=== PATIENT | female | born 2000 ===

== ENCOUNTER 2022-12-15 18:06 | Outpatient (CLI) | payer SELFPAY ==
[~2022-12-15] VITALS: Ht 157.5 cm; Wt 69.1 kg
[2022-12-15 18:40] VITALS: BP 130/78
[2022-12-15] MEDS ORDERED: PRENTAB9 PO (18:53)
[2022-12-15 20:51] VITALS: BP 126/83
== END 2022-12-15 22:23 | disposition home or self-care (01) ==
LOC: M LDO 18:06
PROVIDERS: ATTEND Obstetrics & Gynecology
DX: O26.893 Other specified pregnancy related conditions, third trimester (principal); R25.2 Cramp and spasm; M54.50 Low back pain, unspecified; Z3A.35 35 weeks gestation of pregnancy
CPT/HCPCS: 59025; 76811; 81001; G0463

== ENCOUNTER 2024-07-02 02:47 | Inpatient (IN) | payer SELFPAY ==
[~2024-07-02] VITALS: Ht 157.5 cm; Wt 77.4 kg
[~2024-07-02 02:47] MED LIST: PRENTAB9 PO
[2024-07-02] MEDS ORDERED: TRANEXAMIC ACID INJection 1,000 MG in NS 100 ML IV PRN (02:55)
[2024-07-02] MEDS ORDERED: CARBOPROST TROMETHAMINE 250 MCG/ML AMP IM PRN (02:55)
[2024-07-02] MEDS ORDERED: OXYTOCIN INJ 10UNITS/ML 1ML VIAL IM PRN (02:55)
[2024-07-02] MEDS ORDERED: METHYLERGONOVINE MALEATE 0.2MG/ML 1ML VIAL IM PRN (02:55)
[2024-07-02 03:04] VITALS: BP 132/83
[2024-07-02] MEDS: PENICILLIN G POTASSIUM 5 MU IV 5 MU in DEXTROSE 5% (D5W) MINI-BAG PLU 100 ML IV STA (03:51)
[2024-07-02 03:58] LABS: HEMATOCRIT 34.6 % (36.0-47.0); HEMOGLOBIN 11.6 g/dl (12.0-15.5); MEAN CORPUSCULAR HEMOGLOBIN 27.1 pg (27.0-33.0); MEAN CORPUSCULAR HGB CONC 33.5 g/dl (32.0-36.5); MEAN CORPUSCULAR VOLUME 80.8 fl (80.0-96.0); PLATELET COUNT, AUTOMATED 185 10^3/uL (150-450); RED BLOOD COUNT 4.28 10^6/uL (4.00-5.40); WHITE BLOOD COUNT 10.5 10^3/uL (4.0-10.0)
[2024-07-02 04:56] LABS: HEPATITIS C VIRUS ABY INDEX 0.09 INDEX (<0.8)
[2024-07-02] MEDS: PEN G POT 3,000,000 UNIT/50 ML 3,000,000 UNIT in IV 1 EA IV SCH (07:54)
[2024-07-02] MEDS: OXYTOCIN DRIP 30 UNITS in IV 1 EA IV PRN (08:45)
[2024-07-02] MEDS: LIDOCAINE 1% MDV 20ML VIAL INFIL PRN (08:48)
[2024-07-02] MEDS ORDERED: ACETAMINOPHEN 500 MG TAB PO PRN (09:15)
[2024-07-02] MEDS ORDERED: DOCUSATE SODIUM 100MG CAPSULE PO PRN (09:15)
[2024-07-02] MEDS ORDERED: ONDANSETRON 4MG 2ML VIAL IV PRN (09:15)
[2024-07-02] MEDS ORDERED: ACETAMINOPHEN 325 MG TAB PO PRN (09:15)
[2024-07-02] MEDS ORDERED: ANUSOL HC CREAM 30GM TOP PRN (09:15)
[2024-07-02] MEDS ORDERED: DIBUCAINE 1% OINTMENT 30GM TOP PRN (09:15)
[2024-07-02] MEDS ORDERED: MOM 30ML SUSPENSION UDC PO PRN (09:15)
[2024-07-02] MEDS ORDERED: IBUPROFEN 600MG TAB PO PRN (09:15)
[2024-07-02 09:33] LABS: URIC ACID 4.6 MG/DL (3.1-7.8)
[2024-07-02 09:36] LABS: LDH LACTATE DEHYDROGENASE 260 U/L (120-246)
[2024-07-02 09:37] LABS: ALT/SGPT 11 U/L (7.0-40); AST/SGOT 21 U/L (<34); BILIRUBIN,TOTAL 0.3 MG/DL (0.3-1.2); CREATININE FOR GFR 0.53 MG/DL (0.55-1.30); GLOMERULAR FILTRATION RATE > 60.0 (>60)
[2024-07-02 09:46] LABS: HIV 1&2 SCREEN NEGATIVE (NEGATIVE)
[2024-07-02] MEDS: KETOROLAC 30 MG/ML 1ML VIAL IV ONE (09:59)
[2024-07-02 13:20] VITALS: BP 143/94; O2SAT 99
[2024-07-02 18:00] VITALS: BP 119/62; O2SAT 98
[2024-07-02] MEDS: IBUPROFEN 800 MG TAB PO PRN (20:57)
[2024-07-03 05:55] VITALS: BP 119/66; O2SAT 98
[2024-07-03] MEDS: PRENATAL VITAMINS CHEWABLE TABLET PO SCH (09:42)
[2024-07-03] MEDS: RHOGAM 300MCG (1500IU) INJ IM SCH (09:48)
[2024-07-04] MEDS ORDERED: MEASLES,MUMPS,RUBELLA VACCINE INJ (MMR-II) SC.IMMUN ONE (09:00)
== END 2024-07-03 14:24 | disposition home or self-care (01) | DRG 560 ==
LOC: M LDO 02:47 → M LDI 02:57 → M OBS 12:39
PROVIDERS: ADMIT Advanced Practice Midwife; ATTEND Advanced Practice Midwife
PROC: 10E0XZZ Delivery of Products of Conception, External Approach (ICD-10-PCS; principal; 2024-07-02)
PROC: 10907ZC Drainage of Amniotic Fluid, Therapeutic from Products of Conception, Via Natural or Artificial Opening (ICD-10-PCS; 2024-07-02)
PROC: 0HQ9XZZ Repair Perineum Skin, External Approach (ICD-10-PCS; 2024-07-02)
DX: O48.0 Post-term pregnancy (principal); O70.0 First degree perineal laceration during delivery; Z3A.42 42 weeks gestation of pregnancy; Z37.0 Single live birth